=== PATIENT | male | born 1970 ===

== ENCOUNTER 2018-02-28 12:30 | Inpatient (IN) | payer OTHER ==
[~2018-02-28] VITALS: Ht 167.6 cm; Wt 71.7 kg
[2018-03-08] MEDS ORDERED: DOCUSATE SODIU100 MG PO (08:05)
[2018-03-08] MEDS ORDERED: MEDROLPACK PO (08:06)
[2018-03-08] MEDS ORDERED: COLACE100 MG PO (08:06)
[2018-03-08] MEDS ORDERED: PERCOCET 5-3251 EACH PO (08:07)
[2018-03-08] MEDS ORDERED: CLONAZEPAM1 MG PO (08:12)
== END 2018-03-08 15:01 | disposition home or self-care (01) | DRG 454 ==
LOC: PED 03-07 05:15 → O/R 03-07 05:15 → SURH 03-07 10:45 → PED 03-07 15:45
PROVIDERS: Orthopaedic Surgery Orthopaedic Surgery of the Spine
PROC: 0RG2071 Fusion of 2 or more Cervical Vertebral Joints with Autologous Tissue Substitute, Posterior Approach, Posterior Column, Open Approach (ICD-10-PCS; 2018-03-07)
PROC: 0RT30ZZ Resection of Cervical Vertebral Disc, Open Approach (ICD-10-PCS; 2018-03-07)
PROC: 07DS3ZZ Extraction of Vertebral Bone Marrow, Percutaneous Approach (ICD-10-PCS; 2018-03-07)
PROC: 0RG20A0 Fusion of 2 or more Cervical Vertebral Joints with Interbody Fusion Device, Anterior Approach, Anterior Column, Open Approach (ICD-10-PCS; principal; 2018-03-07 10:45)
DX: M50.01 Cervical disc disorder with myelopathy, high cervical region (principal); M47.12 Other spondylosis with myelopathy, cervical region